=== PATIENT | male | born 1985 | race Caucasian/White ===

== ENCOUNTER 2016-08-23 18:04 | Emergency (ER) | payer OTHER ==
[~2016-08-23 18:04] MED LIST: ASPIRIN PO; FLEXERIL10 MG PO; LISINOPRIL PO; LISINOPRIL-HCTZ1 T19 PO; METOPROLOL TAR25 MG PO; METOPROLOL TART25 MG PO; NO MEDICATIONS; ULTRAM PO; VOLTAREN75 MG PO
[2016-08-23] MEDS ORDERED: NORVASC PO (18:08)
[2016-08-23] MEDS ORDERED: ALEVE220 M1 PO (18:09)
== END 2016-08-23 18:31 | disposition home or self-care (01) ==
LOC: SED 18:04
DX: S61.213A Laceration without foreign body of left middle finger without damage to nail, initial encounter (principal); I10 Essential (primary) hypertension; F17.210 Nicotine dependence, cigarettes, uncomplicated; Z88.0 Allergy status to penicillin; Z88.6 Allergy status to analgesic agent; W26.0XXA Contact with knife, initial encounter; Y92.009 Unspecified place in unspecified non-institutional (private) residence as the place of occurrence of the external cause
CPT/HCPCS: 29130; 99283

== ENCOUNTER 2016-12-02 18:52 | Emergency (ER) | payer OTHER ==
[~2016-12-02 18:52] MED LIST changes: +ALEVE220 M1 PO; +NORVASC PO
== END 2016-12-02 21:04 | disposition home or self-care (01) ==
LOC: SED 18:52
DX: S81.812A Laceration without foreign body, left lower leg, initial encounter (principal); Z23 Encounter for immunization; W26.9XXA Contact with unspecified sharp object(s), initial encounter; Y92.009 Unspecified place in unspecified non-institutional (private) residence as the place of occurrence of the external cause
CPT/HCPCS: 12002; 90471; 90715; 99283